=== PATIENT | female | born 1985 | race Caucasian/White ===

== ENCOUNTER → 2021-01-15 | Outpatient (CLI) | payer BC | LOC: LABNPT 05:58 | PROVIDERS: ATTEND Nurse Practitioner Family | DX: Z53.9 Procedure and treatment not carried out, unspecified reason (principal) ==

== ENCOUNTER 2023-01-15 05:40 | Outpatient (CLI) | payer BC ==
[~2023-01-15] VITALS: Ht 161.3 cm; Wt 135.2 kg
[2023-01-20] MEDS ORDERED: LISI10TA25 PO (13:37)
[2023-01-20] MEDS ORDERED: DULO20CA19 PO (13:37)
[2023-01-20] MEDS ORDERED: OMEP20CA18 PO (13:37)
[2023-01-20] MEDS ORDERED: ATOR10TA PO (13:37)
== END 2023-01-20 13:44 | disposition home or self-care (01) ==
LOC: PREOP 05:40
PROVIDERS: ATTEND Surgery
DX: Z01.818 Encounter for other preprocedural examination (principal)

== ENCOUNTER 2023-01-24 11:58 | Day surgery (SDC) | payer BC ==
[~2023-01-24] VITALS: Ht 161.3 cm; Wt 135.2 kg
[~2023-01-24 11:58] MED LIST: ATOR10TA PO; DULO20CA19 PO; LISI10TA25 PO; OMEP20CA18 PO
[2023-01-24] MEDS ORDERED: LACTATED RINGERS 1,000 ML IV STA (12:06)
[2023-01-24] MEDS ORDERED: HURRICAINE EXT TUBE (BENZOCAINE) XX PRN (12:15)
[2023-01-24 12:27] VITALS: BP 153/101
--- NOTE | 2023-01-24 13:12 | Progress Note-Pre Operative ---
Pre-Operative Progress Note Date H&P Reviewed: Jan 24, 2023 Time H&P Reviewed: 13:11 History & Physical: H&P Reviewed, Patient Examed, No changes noted Pre-Operative Diagnosis: change in bowel habits, epigastric pain, gerd RYAN SANTANA DO Jan 24, 2023 13:12
[2023-01-24] MEDS ORDERED: MIDAZOLAM 2 MG/2 ML (VERSED) VIAL ONE (13:59)
[2023-01-24] MEDS ORDERED: PROPOFOL INJECTION 50 ML IV ONE (13:59)
[2023-01-24 14:30] VITALS: BP 163/80
--- NOTE | 2023-01-24 14:31 | Progress Note-Post Operative ---
Post-Operative Progess Note Surgeon (s)/Business Unit Controller (s) Surgeon RYAN SANTANA DO Business Unit Controller: na Pre-Operative Diagnosis change in bowel habits, epigastric pain, gerd Post-Operative Diagnosis hiatal hernia mucosal change in duodenum sigmoid polyp Procedure & Operative Findings Date of Procedure 01/24/23 Procedure Performed/Findings EGD with biopsies Colonoscopy with hot biopsy and polypectomyx1 Anesthesia Type per [facility] Estimated Blood Loss Estimated blood loss (mL): na Specimens/Packing Specimens Removed sigmoid polyp duodenal, antrum, and GE biopsies RYAN SANTANA DO Jan 24, 2023 14:31
[2023-01-24 14:35] VITALS: BP 155/79
[2023-01-24] MEDS ORDERED: PANT40TA2 PO (14:35)
--- NOTE | 2023-01-24 14:36 | Discharge Inst-Simple/Standard ---
Discharge Inst-Standard Discharge Medications New, Converted or Re-Newed RX: Transmitted to Pharmacy Patient Instructions/Follow Up Plan of Care/Instructions/FU: 2 weeks Oralia Activity as Tolerated: Yes Discharge Diet: Regular Diet RYAN SANTANA DO Jan 24, 2023 14:36
[2023-01-24 14:40] VITALS: BP 164/82
[2023-01-24 15:10] VITALS: BP 164/82
--- NOTE | 2023-01-24 15:20 | Anesthesia-General Post-Op ---
MAC Patient Condition Mental Status/LOC: Same as Preop Cardiovascular: Satisfactory Nausea/Vomiting: Absent Respiratory: Satisfactory Pain: Controlled Complications: Absent Post Op Complications Complications None Follow Up Care/Instructions Patient Instructions None needed. Anesthesiology Discharge Order Discharge Order Patient is doing well, no complaints, stable vital signs, no apparent adverse anesthesia problems. No complications reported per nursing. JOHN REDDING DO Jan 24, 2023 15:20
--- NOTE | 2023-01-24 19:04 | OPERATIVE REPORT ---
DATE OF SERVICE: 01/24/2023 PREOPERATIVE DIAGNOSES: Change in bowel habits, gastroesophageal reflux disease, epigastric abdominal pain. POSTOPERATIVE DIAGNOSES: Mucosal changes in the duodenum, hiatal hernia, linear ulcerations within the GE junction, colon polyp. PROCEDURES: EGD with biopsies, colonoscopy with hot biopsy polypectomy x1. SURGEON: Ryan Barton DO ANESTHESIA: Per MDA. ESTIMATED BLOOD LOSS: None. COMPLICATIONS: None. INDICATIONS: The patient is a 37-year-old female who has a change in bowel habits and epigastric abdominal pain and GERD symptoms. She understands risks and benefits of the procedure for further evaluation. She wishes to proceed. Consent was signed in chart. DESCRIPTION OF PROCEDURE: The patient was taken to the endoscopy suite, placed in the left lateral recumbent position. Timeout was performed. Scope was inserted in the mouth, down the esophagus, stomach, into the duodenum without difficulty. No polyps, masses or ulcerations in the second portion of the duodenum. First portion of duodenum had some slight mucosal changes. Biopsy of this area was obtained. Scope was slowly retracted back into the stomach where it was further insufflated. Biopsy of the antrum was obtained. No polyps, masses or ulcerations. Scope was retroflexed noting a moderate size hiatal hernia. Scope was returned to its normal position, slowly withdrawn until distal esophagus, which had some linear ulcerations present. Biopsy of the GE junction was obtained. Scope was slowly retracted back until completely removed, noting no other pathology. Digital rectal exam was performed. No palpable polyps, masses or ulcerations. Scope was inserted in the rectum, advanced all the way to the cecum with minimal difficulty. Prep was adequate with irrigation and suction. Scope was then slowly retracted back. No polyps, masses or ulcerations within the cecum, ascending, transverse, descending colon. In sigmoid colon, a polyp was present, which hot biopsy polypectomy was performed. Scope was then continuously retracted back to the rectum, where it was also retroflexed noting no other pathology. Scope was returned to its normal position, slowly withdrawn until completely removed. The patient tolerated the procedure well without complications, taken to recovery room in stable condition. RECOMMENDATIONS: The patient will need repeat colonoscopy in 5 years due to polyps. If she has any changes before that she should be reevaluated. The patient with linear ulcerations, hiatal hernia and also duodenal changes of the duodenum would follow up on biopsy results. Further recommendation pending that result. The patient is on omeprazole currently. We will stop that and change her to Protonix 40 mg daily. Further recommendation pending his symptoms and biopsy results. Job ID: [id number] DocumentID: [id number] Dictated Date: 01/24/2023 14:39:49 Floor Cashier Date: 01/24/2023 19:01:00 Dictated By: RYAN BARTON DO
== END 2023-01-24 15:25 | disposition home or self-care (01) ==
LOC: ENDO 11:58
PROVIDERS: ATTEND Surgery
DX: K63.5 Polyp of colon (principal); K31.89 Other diseases of stomach and duodenum; K44.9 Diaphragmatic hernia without obstruction or gangrene; K25.9 Gastric ulcer, unspecified as acute or chronic, without hemorrhage or perforation; E66.01 Morbid (severe) obesity due to excess calories; K21.9 Gastro-esophageal reflux disease without esophagitis; Z68.43 Body mass index [BMI] 50.0-59.9, adult; Z87.891 Personal history of nicotine dependence
CPT/HCPCS: 84703